=== PATIENT | female | born 1955 | race Caucasian/White ===

== ENCOUNTER 2024-02-06 09:54 | Inpatient (IN) ==
--- NOTE | 2024-02-06 10:33 | Emergency Department Note ---
History of Present Illness General Chief complaint: Bleeding Stated complaint: DIFF BREATHING, ABNORMAL LABS, BLEEDING Time Seen by Provider: 02/06/24 10:21 History of Present Illness This is a 68-year-old female with a history of diabetes, pancreatitis, stage IV kidney disease, recent anemia, as well as history of open heart surgery previously on Plavix with complaints of "difficulty breathing, abnormal labs, bleeding". The patient notes that this past October she sustained a fall, when she broke facial bones and had epistaxis. She was on Plavix at that time but that was discontinued. The only anticoagulant/antiplatelet is now low-dose aspirin that she takes daily, last dose yesterday. The patient notes that as of recent she has had exertional dyspnea, pale appearance to her skin, blue lips at times. She is concerned that she is losing blood but unsure where. She notes that her last hemoglobin check was January 28 and was 8.1. Additionally she notes that fecal occult blood test was performed then as well and was negative. She denies any vomiting. No fevers, chills or nausea. There is no chest pain. She notes that she cannot lay flat as she is quite dyspneic. She notes that she has to sit up to sleep. She is here today accompanied by her son as well as [id number]. Patient does have laboratory studies on her phone. These indicate that her hemoglobin was normally around 14 last of which was November 2022 and then in November of this year, 2023, it dropped into the 8 range. Home Medications Medication Instructions Recorded Confirmed Type Iron with C 1 tab PO DAILY 02/06/24 02/06/24 History Vitamin D3 1 tab PO DAILY 02/06/24 02/06/24 History furosemide 20 mg tablet 20 mg PO DAILY 02/06/24 02/06/24 History magnesium 1 tab PO DAILY 02/06/24 02/06/24 History metformin 1,000 mg tablet 1,000 mg PO BID 02/06/24 02/06/24 History nebivolol 10 mg tablet (Bystolic) 5 mg PO DAILY 02/06/24 02/06/24 History pantoprazole 40 mg tablet,delayed 40 mg PO BID 02/06/24 02/06/24 History release potassium 1 tab PO DAILY 02/06/24 02/06/24 History pramipexole 1.5 mg tablet,extended 1.5 mg PO DAILY 02/06/24 02/06/24 History release 24 hr ranolazine 500 mg tablet,extended 500 mg PO BID 02/06/24 02/06/24 History release,12 hr rosuvastatin 20 mg tablet 20 mg PO DAILY 02/06/24 02/06/24 History triamterene 37.5 1 cap PO DAILY 02/06/24 02/06/24 History mg-hydrochlorothiazide 25 mg capsule venlafaxine 150 mg 150 mg PO BID 02/06/24 02/06/24 History capsule,extended release 24 hr Allergies Allergy/AdvReac Type Severity Reaction Status Date / Time cefazolin [From Ancef] Allergy Verified 02/06/24 10:38 erythromycin base Allergy Verified 02/06/24 10:38 [From Erythrocin] Past Med/Surg History Problem List (Updated 02/06/24 @ 17:16 by Orlin Ordoñez PA-C) Orthopnea (Acute) CAD (coronary artery disease) Anxiety and depression GERD (gastroesophageal reflux disease) Anemia (Acute) Restless leg syndrome Diabetes mellitus Hyperlipidemia Hypertension S/P CABG x 2 CHF exacerbation (Acute) Social History Smoking Status: Former smoker Second Hand Exposure: No; Do You Dip or Chew Tobacco: No; Tobacco Cessation Education Requested by Patient: No Hx Alcohol Use: No Hx Substance Use: No Preferred Language: Swedish Communication Ability: Effective Suede Cleaner Required: No Current Living Situation: Alone Other Information That Helps Us Care for You: No Feels Safe at Home: Yes Safety Concerns: Feels Safe At This Time Assistive Devices: None Review of Systems A total of 10 systems reviewed and were otherwise negative Physical Exam Vital Signs Vital Signs - 24 hr 02/06/24 10:01 02/06/24 10:24 02/06/24 12:44 Temperature 36.6 C Temperature Source Temporal Artery Scan Pulse Rate 66 61 Respiratory Rate 18 Blood Pressure 129/75 Blood Pressure Mean 93 Pulse Oximetry 94 95 Oxygen Delivery Method Room Air Room Air Oxygen Flow Rate 0 Sepsis Recent Fever Within 48 Hours No Sepsis New/Unexplained Change in Mental Status N/A Sepsis Action Taken by Nursing No Action Required VITAL SIGNS - Vital signs and nursing notes were reviewed. Stable and afebrile. GENERAL -68-year-old female appearing her stated age who is in no acute distress but pale in appearance. Communicates well with provider and answers questions appropriately. SKIN -mildly pale in appearance. Without rashes. Stable and afebrile. HEAD - NC/AT. EYES - PERRL with EOMI bilaterally. Sclera anicteric. Palpebral conjunctiva pink and moist with no injection noted. EARS - No deformities of external structures noted on gross examination bilaterally. NOSE - Midline and without cyanosis. No epistaxis or purulent drainage noted. Septum midline without deviation or septal hematoma noted. MOUTH/OROPHARYNX - Without perioral cyanosis however minimal pink hue noted to the lips, with a slight purpleish hue. No tonsillar hypertrophy. Tongue midline. NECK - Neck with FROM. Supple to palpation. No nuchal rigidity. LUNGS - Chest wall symmetric without accessory muscle use, intercostals retractions, or central cyanosis. Normal vesicular breath sounds CTA B/L. No wheezes, rales, or rhonchi appreciated. CARDIAC - RRR with S1/S2. No murmur, rubs, or gallops appreciated. ABDOMEN - Abdominal contour normal without pulsations or visible masses. BS normoactive all four quadrants. No tenderness, palpable masses, hepatosplenomegaly, or ascites noted. EXTREMITIES - No clubbing or peripheral cyanosis. No pretibial edema present.+5/5 strength noted in UE/LE bilaterally. NEUROLOGIC - Cranial nerves II through XII grossly intact. PSYCH -alert, oriented and pleasant on exam. RECTAL examverbal consent was obtained. Female RN Carolina present at bedside. Examination performed at noon on 02/06/2024. No bleeding hemorrhoids. Fecal occult blood test negative Course Administered Medications Discontinued Medications Furosemide (Furosemide 40 Mg/4 Ml Vial) 40 mg IV ONE ONE Stop: 02/06/24 13:54 Last Admin: 02/06/24 14:07 Dose: 40 mg Documented By: TONO Medical Decision Making Laboratory Data 02/06/24 10:19 02/06/24 10:19 Lab Results 02/06/24 02/06/24 02/06/24 Range/Units 10:19 10:53 12:56 WBC 9.68 (4.8-10.8) K/ul RBC 3.83 L (4.20-5.40) M/uL Hgb 8.5 L (12.0-16.0) g/dl Hct 30.0 L (37.0-47.0) % MCV 78.3 L (80.0-100.0) fL MCH 22.2 L (25.0-34.0) pg MCHC 28.3 L (32.0-36.0) g/dL RDW Std Deviation 50.2 H (36.4-46.3) fL RDW Coeff of Olu 18.7 H (11.5-14.5) % Plt Count 303 (130-400) K/uL MPV 11.1 (9.4-12.4) fL Immature Gran % (Auto) 1.2 % Neut % (Auto) 65.3 % Lymph % (Auto) 17.8 % [place] % (Auto) 11.8 % Eos % (Auto) 3.2 % Baso % (Auto) 0.7 % Reticulocyte % (Auto) 3.15 H (0.50-2.00) % Neut # (Auto) 6.32 (1.40-6.50) K/uL Lymph # (Auto) 1.72 (1.20-3.40) K/uL [place] # (Auto) 1.14 H (0.11-0.59) K/uL Eos # (Auto) 0.31 (0.00-0.50) K/uL Baso # (Auto) 0.07 (0.00-0.20) K/uL Reticulocyte # 0.120 H (0.020-0.100) 10^6/uL Immature Gran # (Auto) 0.12 (0.01-0.20) K/uL Absolute Nucleated RBC 0.02 (0.00-0.12) K/uL Nucleated RBC % (auto) 0.2 % Polychromasia 1+ PT 11.7 (9.0-12.0) Seconds INR 1.1 (0.9-1.1) APTT 32 H (21-31) Seconds PTT Ratio 1.2 Sodium 136 (136-145) mmol/L Potassium 4.3 (3.5-5.1) mmol/L Chloride 100 (98-107) mmol/L Carbon Dioxide 30 (21-32) mmol/L Anion Gap 6 (3-11) BUN 19 (6-23) mg/dl Creatinine 1.20 (0.6-1.2) mg/dl Est Cr Clr Drug Dosing 45.8 ml/min Est GFR ( Amer) 53.4 ml/min Est GFR (Non-Af Amer) 46.1 ml/min BUN/Creatinine Ratio 15.8 (10-20) Glucose 178 H (70-99(Fasting)) mg/dl Calcium 9.6 (8.6-10.3) mg/dl Magnesium 2.0 (1.7-2.4) mg/dl Iron 51 (35-150) mcg/dl TIBC 382 (250-450) mcg/dl Unsaturated IBC 331 (155-355) mcg/dl Transferrin % Sat 13 L (15-50) % Total Bilirubin 0.5 (0.2-1.0) mg/dl AST 15 (13-39) U/L ALT 15 (7-52) U/L Alkaline Phosphatase 107 H (34-104) U/L Troponin I High Sens 7.2 (0-14) pg/ml B-Natriuretic Peptide 493 H (0-100) pg/ml Total Protein 6.6 (6.0-8.3) gm/dl Albumin 4.3 (3.4-5.0) gm/dl Globulin 2.3 L (2.5-4.0) gm/dl Albumin/Globulin Ratio 1.9 (0.9-2) Vitamin B12 351 (180-914) pg/ml Folate 12.48 (>5.38) ng/ml TSH 2.961 (0.300-4.500) uIu/ml Blood Type O Positive Antibody Screen NEGATIVE Imaging Data Radiologist's Impression: Chest X-Ray 02/06/24 10:33 XR chest 1V portable HISTORY: dyspnea, anemia COMPARISON: None. FINDINGS: No pneumothorax. No pleural effusions. The cardiac silhouette is mildly enlarged. There are poststernotomy changes. No focal lung consolidations to suggest a pneumonia. Mild interstitial/vascular thickening likely representing mild pulmonary edema. IMPRESSION: Cardiomegaly with mild pulmonary edema. ACT 112: Negative or not required by law. Electronically signed by: Sanket Joshi M.D. 02/06/2024 11:53 AM MDM Narrative Patient was seen and evaluated as above in room C9. Review was performed of triage nursing notes and vital signs. No previous visits for review at time of evaluation however the patient does have some of her laboratory studies on her phone for review. She is here today for evaluation of exertional dyspnea, orthopnea, in the setting of recently identified anemia. After obtaining a thorough history and physical examination the above work up was performed. Patient is clinically well-appearing, pale in appearance overall. Options of care were discussed with the patient. IV access was established. Labs were drawn. There is no leukocytosis. Anemia noted with hemoglobin of 8.5. Type and screen ordered. INR normal. Creatinine 1.2 with a BUN of 19. Glucose 178. Troponin normal. TSH reveals euthyroid state. Patient is O+. CTA of the chest was considered however the patient does have underlying CKD and there are other differentials at this time which are felt to be more likely than PE. Additional studies were ordered to include BNP 493. Chest x-ray also notes cardiomegaly with mild pulmonary edema per my interpretation as well as the radiologist. At this time we will proceed with inpatient management. Case discussed with the hospitalist service. Please refer to further documentation regarding her stay. Case was discussed with the attending physician. EKG reveals normal sinus rhythm at a rate of 66 bpm. QTc 454. QRS 80. No ST elevation. No previous for comparison. GCS: 15 In the evaluation and treatment of this patient the following differential diagnoses were entertained: VA, PE, pneumonia, pleural effusion, CHF, symptomatic anemia, among others Impression & Plan CHF exacerbation, Anemia, Orthopnea Discharge Plan Visit Data Chief Complaint: Bleeding Stated Complaint: DIFF BREATHING, ABNORMAL LABS, BLEEDING ED Provider: [facility] ED Midlevel Provider: Orlin Ordoñez Discharge Problem: CHF exacerbation, Anemia, Orthopnea Patient Disposition: Admitted As Inpatient Condition: Good Discharge Instructions Interventions: ED Discharge Assessment Last Done: 02/06/24 15:34
[2024-02-06 10:45] LABS: Basophils # (auto) 0.07 K/uL (0.00-0.20); Basophils % (auto) 0.7 %; Eosinophils # (auto) 0.31 K/uL (0.00-0.50); Eosinophils % (auto) 3.2 %; Hemoglobin 8.5 g/dl (12.0-16.0); Immature Granulocytes # (auto) 0.12 K/uL (0.01-0.20); Immature Granulocytes % (auto) 1.2 %; Lymphocytes # (auto) 1.72 K/uL (1.20-3.40); Lymphocytes % (auto) 17.8 %; Mean Corpuscular Hemoglobin 22.2 pg (25.0-34.0); Mean Corpuscular Hgb Conc 28.3 g/dL (32.0-36.0); Mean Corpuscular Volume 78.3 fL (80.0-100.0); Mean Platelet Volume 11.1 fL (9.4-12.4); Monocytes # (auto) 1.14 K/uL (0.11-0.59); Monocytes % (auto) 11.8 %; Neutrophils # (auto) 6.32 K/uL (1.40-6.50); Neutrophils % (auto) 65.3 %; Nucleated RBC # (auto) 0.02 K/uL (0.00-0.12); Nucleated RBC % (auto) 0.2 %; Platelet Count 303 K/uL (130-400); RDW Coefficient of Variation 18.7 % (11.5-14.5); RDW Standard Deviation 50.2 fL (36.4-46.3); Red Blood Count 3.83 M/uL (4.20-5.40); White Blood Count 9.68 K/ul (4.8-10.8)
[2024-02-06 10:52] LABS: Albumin Globulin Ratio 1.9 (0.9-2); Albumin Level 4.3 gm/dl (3.4-5.0); BUN Creatinine Ratio 15.8 (10-20); Bilirubin,Total 0.5 mg/dl (0.2-1.0); Calcium 9.6 mg/dl (8.6-10.3); Creatinine Clr Calc Pharmacy 45.8 ml/min; Est GFR (African American) 53.4 ml/min; Est GFR (Non-African American) 46.1 ml/min; Globulin 2.3 gm/dl (2.5-4.0); Potassium 4.3 mmol/L (3.5-5.1); Total Protein 6.6 gm/dl (6.0-8.3)
[2024-02-06 10:59] LABS: Troponin I High Sensitivity 7.2 pg/ml (0-14)
[2024-02-06 11:08] LABS: Thyroid Stimulating Hormone 2.961 uIu/ml (0.300-4.500)
[2024-02-06 11:12] LABS: INR 1.1 (0.9-1.1); Partial Thromboplastin Ratio 1.2; Partial Thromboplastin Time 32 Seconds (21-31); Prothrombin Time 11.7 Seconds (9.0-12.0)
--- NOTE | 2024-02-06 11:42 | Emergency Department Note ---
ED Visit Note ED Physician Supervisory Note & Attestation: I was consulted by the Advanced Practice Provider, Orlin Ordoñez PA-C. I personally made/approved the management plan and take responsibility for the patient management. I performed a substantive portion of the visit. This includes the aspects of: MDM: Acute/new onset anemia associated with shortness of breath and symptomatic. Patient with cardiac disease we will hold off on transfusion at this point but given unclear etiology and symptomatic we will consult for further evaluation on the hospital side. Tre Ness MD
--- NOTE | 2024-02-06 11:54 | XRay Report ---
XR chest 1V portable HISTORY: dyspnea, anemia COMPARISON: None. FINDINGS: No pneumothorax. No pleural effusions. The cardiac silhouette is mildly enlarged. There are poststernotomy changes. No focal lung consolidations to suggest a pneumonia. Mild interstitial/vascu lar thickening likely representing mild pulmonary edema. IMPRESSION: Cardiomegaly with mild pulmonary edema. ACT 112: Negative or not required by law. Electronically signed by: Sanket Joshi M.D. 02/06/2024 11:53 AM
--- NOTE | 2024-02-06 12:12 | Electrocardiogram Report ---
Test Reason : Blood Pressure : / mmHG Vent. Rate : 066 BPM Atrial Rate : 066 BPM P-R Int : 146 ms QRS Dur : 080 ms QT Int : 434 ms P-R-T Axes : 058 043 006 degrees QTc Int : 454 ms Normal sinus rhythm Cannot rule out Inferior infarct , age undetermined Possible Anterior infarct , age undetermined Abnormal ECG No previous ECGs available Confirmed by Ankit Daniel ([id number]) on 02/06/2024 12:12:03 PM Referred By: REFERRED SELF Confirmed By:Diogo Daniel
[2024-02-06] MEDS: FUROSEMIDE 40 MG/4 ML VIAL IV ONE (14:07)
[2024-02-06 14:14] LABS: Reticulocyte % 3.15 % (0.50-2.00)
--- NOTE | 2024-02-06 14:26 | History & Physical Report ---
Date of Service February 06, 2024 Assessment & Plan (1) CHF exacerbation: (2) S/P CABG x 2: (3) Hypertension: (4) Hyperlipidemia: (5) Diabetes mellitus: (6) Restless leg syndrome: (7) Anemia: (8) GERD (gastroesophageal reflux disease): (9) Anxiety and depression: (10) CAD (coronary artery disease): Plan CHF exacerbation/CAD/hypertension/status post CABG x 2- The patient will be admitted to telemetry for serial cardiac enzymes, serial EKG's, cardiac rhythm monitoring and a 2-D echocardiogram with Dopplers. Chest x-ray with significant CHF initial troponin 7.2, BNP 493 Give furosemide 40 mg IV now and QAM Continue ranolazine and nebivolol Hold triamterene/HCTZ and lisinopril Consult cardiology Try to obtain all records from [facility] and hospital that she was at in [place] Anemia- Unclear etiology at this time Per history, began after a nasal fracture in October while in [place], will attempt to get those records Hemoglobin 8.5 on admission Hemoccult stool negative in the ED, continue to check Check iron panel, B12, folate, reticulocyte count and peripheral smear No suggestion of trauma to be concerned regarding retroperitoneal bleed hold antiplatelet agents and anticoagulants Other than ranolazine Diabetes mellitus- Hold metformin Placed on Accu-Cheks with NovoLog SSI Check hemoglobin A1c GERD- Continue pantoprazole 40 mg p.o. twice daily Hyperlipidemia- Continue rosuvastatin Check a fasting lipid panel History of Present Illness Chief Complaint: Patient presents to the emergency department with worsening shortness of breath, dyspnea on exertion, and inability to lay flat over the past several days. Primary Care Provider: Carlito Boyer DO The patient is a 68-year-old female with a past medical history including CAD, CABG x 2 in 2018, hypertension, diabetes mellitus, GERD, restless leg syndrome, hyperlipidemia and anxiety with depression. She presents to the emergency department with worsening shortness of breath over the past several days. She usually gets her care at [facility], however, patient has presented with her family to [place] for additional assessment. Patient has known history of anemia, which initially occurred 11/01/2023, while she was in [place], when she accidentally stepped into a hole, fell forward and fractured her nasal bones, required packing for a week, and was found to have a hemoglobin of 8.1 at that time. She denies any obvious issues with blood loss in stool or urine. She reports that she was on Maxide in the outpatient setting, which had been changed to furosemide last week, but she felt that she was retaining more fluid in her legs, and she went back to her Maxide dosing 3 days ago. Her family reports that she has been sleeping up to 18 hours a day over the past 2 weeks, due to severe fatigue she denies any blood in urine or stool.She reports that her Plavix was stopped last week when her hemoglobin was found to be low at her most recent labs Allergies Allergy/AdvReac Type Severity Reaction Status Date / Time cefazolin [From Ancef] Allergy Verified 02/06/24 10:38 erythromycin base Allergy Verified 02/06/24 10:38 [From Erythrocin] Home Medications Medication Instructions Recorded Confirmed Type Iron with C 1 tab PO DAILY 02/06/24 02/06/24 History Vitamin D3 1 tab PO DAILY 02/06/24 02/06/24 History furosemide 20 mg tablet 20 mg PO DAILY 02/06/24 02/06/24 History magnesium 1 tab PO DAILY 02/06/24 02/06/24 History metformin 1,000 mg tablet 1,000 mg PO BID 02/06/24 02/06/24 History nebivolol 10 mg tablet (Bystolic) 5 mg PO DAILY 02/06/24 02/06/24 History pantoprazole 40 mg tablet,delayed 40 mg PO BID 02/06/24 02/06/24 History release potassium 1 tab PO DAILY 02/06/24 02/06/24 History pramipexole 1.5 mg tablet,extended 1.5 mg PO DAILY 02/06/24 02/06/24 History release 24 hr ranolazine 500 mg tablet,extended 500 mg PO BID 02/06/24 02/06/24 History release,12 hr rosuvastatin 20 mg tablet 20 mg PO DAILY 02/06/24 02/06/24 History triamterene 37.5 1 cap PO DAILY 02/06/24 02/06/24 History mg-hydrochlorothiazide 25 mg capsule venlafaxine 150 mg 150 mg PO BID 02/06/24 02/06/24 History capsule,extended release 24 hr Past Med/Surg History Problem List (Updated 02/06/24 @ 14:24 by Alex Snow MD) CAD (coronary artery disease) Anxiety and depression GERD (gastroesophageal reflux disease) Anemia Restless leg syndrome Diabetes mellitus Hyperlipidemia Hypertension S/P CABG x 2 CHF exacerbation Social History Smoking Status: Former smoker Second Hand Exposure: No; Do You Dip or Chew Tobacco: No; Tobacco Cessation Education Requested by Patient: No Hx Alcohol Use: No Hx Substance Use: No Preferred Language: Armenian Communication Ability: Effective 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: No Current Living Situation: Alone Other Information That Helps Us Care for You: No Feels Safe at Home: Yes Safety Concerns: Feels Safe At This Time Assistive Devices: None Review of Systems Review of Systems: The patient denies chest pain, palpitations, cough, sore throat, fevers, chills, sweats, nausea, vomiting, diarrhea , constipation, abdominal pain, pelvic pain, blood in urine or stool, dysuria, urinary frequency or urgency, lightheadedness, dizziness, headache, memory loss, loss of consciousness, rash, abnormal bruising or bleeding, imbalance, focal or generalized weakness, numbness or tingling in arms or legs, generalized arthralgias or myalgias, back or neck pain, or night sweats. The review of systems is otherwise negative other than for that already noted above, and at least 10 systems have been reviewed. Physical Exam Physical Exam: The patient is awake, alert and oriented 3, well developed and well nourished, normocephalic and atraumatic, lying in bed and in no acute distress. HEENT--PERRL, EOMI, mucous membranes and oropharynx normal Neck--supple. No JVD. No bruits. Thyroid normal, trachea midline, no adenopathy. Heart--normal S1 and S2. No murmurs, rubs or gallops. Lungs--crackles throughout. No respiratory distress, no accessory muscle use. Abdomen--normal bowel sounds and soft. Nontender. Nondistended, no hernias or masses, no organomegaly. Extremities--1+ bilateral pretibial pitting edema Dermatologic--normal skin turgor, normal color, no abnormal lymph nodes, no rash. Neurologic--cranial nerves II through XII grossly intact. Rheumatologic--normal range of motion. Psychiatric--normal affect. Results & Data Results & Data Vital Signs (Past 12 Hours) Vital Signs Temp Pulse Resp BP Pulse Ox O2 Del Method O2 Flow Rate 02/06/24 12:44 61 02/06/24 10:24 95 Room Air 0 02/06/24 10:01 36.6 C 66 18 129/75 94 Room Air Laboratory Results Laboratory Results WBC 9.68 K/ul (4.8-10.8) 02/06/24 10:19 RBC 3.83 M/uL (4.20-5.40) L 02/06/24 10:19 Hgb 8.5 g/dl (12.0-16.0) L 02/06/24 10:19 Hct 30.0 % (37.0-47.0) L 02/06/24 10:19 MCV 78.3 fL (80.0-100.0) L 02/06/24 10:19 MCH 22.2 pg (25.0-34.0) L 02/06/24 10:19 MCHC 28.3 g/dL (32.0-36.0) L 02/06/24 10:19 RDW Std Deviation 50.2 fL (36.4-46.3) H 02/06/24 10:19 RDW Coeff of Olu 18.7 % (11.5-14.5) H 02/06/24 10:19 Plt Count 303 K/uL (130-400) 02/06/24 10:19 MPV 11.1 fL (9.4-12.4) 02/06/24 10:19 Immature Gran % (Auto) 1.2 % 02/06/24 10:19 Neut % (Auto) 65.3 % 02/06/24 10:19 Lymph % (Auto) 17.8 % 02/06/24 10:19 [place] % (Auto) 11.8 % 02/06/24 10:19 Eos % (Auto) 3.2 % 02/06/24 10:19 Baso % (Auto) 0.7 % 02/06/24 10:19 Reticulocyte % (Auto) 3.15 % (0.50-2.00) H 02/06/24 10:19 Neut # (Auto) 6.32 K/uL (1.40-6.50) 02/06/24 10:19 Lymph # (Auto) 1.72 K/uL (1.20-3.40) 02/06/24 10:19 [place] # (Auto) 1.14 K/uL (0.11-0.59) H 02/06/24 10:19 Eos # (Auto) 0.31 K/uL (0.00-0.50) 02/06/24 10:19 Baso # (Auto) 0.07 K/uL (0.00-0.20) 02/06/24 10:19 Reticulocyte # 0.120 10^6/uL (0.020-0.100) H 02/06/24 10:19 Immature Gran # (Auto) 0.12 K/uL (0.01-0.20) 02/06/24 10:19 Absolute Nucleated RBC 0.02 K/uL (0.00-0.12) 02/06/24 10:19 Nucleated RBC % (auto) 0.2 % 02/06/24 10:19 PT 11.7 Seconds (9.0-12.0) 02/06/24 10:19 INR 1.1 (0.9-1.1) 02/06/24 10:19 APTT 32 Seconds (21-31) H 02/06/24 10:19 PTT Ratio 1.2 02/06/24 10:19 Sodium 136 mmol/L (136-145) 02/06/24 10:19 Potassium 4.3 mmol/L (3.5-5.1) 02/06/24 10:19 Chloride 100 mmol/L (98-107) 02/06/24 10:19 Carbon Dioxide 30 mmol/L (21-32) 02/06/24 10:19 Anion Gap 6 (3-11) 02/06/24 10:19 BUN 19 mg/dl (6-23) 02/06/24 10:19 Creatinine 1.20 mg/dl (0.6-1.2) 02/06/24 10:19 Est Cr Clr Drug Dosing 45.8 ml/min 02/06/24 10:19 Est GFR ( Amer) 53.4 ml/min 02/06/24 10:19 Est GFR (Non-Af Amer) 46.1 ml/min 02/06/24 10:19 BUN/Creatinine Ratio 15.8 (10-20) 02/06/24 10:19 Glucose 178 mg/dl (70-99(Fasting)) H 02/06/24 10:19 Calcium 9.6 mg/dl (8.6-10.3) 02/06/24 10:19 Magnesium 2.0 mg/dl (1.7-2.4) 02/06/24 10:19 Total Bilirubin 0.5 mg/dl (0.2-1.0) 02/06/24 10:19 AST 15 U/L (13-39) 02/06/24 10:19 ALT 15 U/L (7-52) 02/06/24 10:19 Alkaline Phosphatase 107 U/L (34-104) H 02/06/24 10:19 Troponin I High Sens 7.2 pg/ml (0-14) 02/06/24 10:19 B-Natriuretic Peptide 493 pg/ml (0-100) H 02/06/24 12:56 Total Protein 6.6 gm/dl (6.0-8.3) 02/06/24 10:19 Albumin 4.3 gm/dl (3.4-5.0) 02/06/24 10:19 Globulin 2.3 gm/dl (2.5-4.0) L 02/06/24 10:19 Albumin/Globulin Ratio 1.9 (0.9-2) 02/06/24 10:19 TSH 2.961 uIu/ml (0.300-4.500) 02/06/24 10:19 Blood Type O Positive 02/06/24 10:53 Antibody Screen NEGATIVE 02/06/24 10:53 Impressions Chest X-Ray 02/06/24 10:33 XR chest 1V portable HISTORY: dyspnea, anemia COMPARISON: None. FINDINGS: No pneumothorax. No pleural effusions. The cardiac silhouette is mildly enlarged. There are poststernotomy changes. No focal lung consolidations to suggest a pneumonia. Mild interstitial/vascular thickening likely representing mild pulmonary edema. IMPRESSION: Cardiomegaly with mild pulmonary edema. ACT 112: Negative or not required by law. Electronically signed by: Sanket Joshi M.D. 02/06/2024 11:53 AM Code Status & VTE Plan Code Status Full code VTE Prophylaxis Plan VTE Prophylaxis will be ordered: Yes PG Care Time/CCT Total # of Minutes Spent Total Time Spent with Patient: Total time spent is greater than 50% in coordination of care (as documented) at patient's floor/unit and/or counseling patient: Coding Level of Care Code 47357 INT INP/OBS CARE MIN Diagnoses CHF exacerbation I50.9 S/P CABG x 2 Z95.1 Hypertension I10 Hyperlipidemia E78.5 Diabetes mellitus E11.9 Restless leg syndrome G25.81 Anemia D64.9 GERD (gastroesophageal reflux disease) K21.9 Anxiety and depression F41.9; F32.A CAD (coronary artery disease) I25.10
[2024-02-06 14:42] LABS: Polychromasia 1+
[2024-02-06 14:59] LABS: Folate (Folic Acid),Ser orPlas 12.48 ng/ml (>5.38)
[2024-02-06] MEDS ORDERED: GLUCOSE 40% GEL 15 GM TUBE PO PRN (16:30)
[2024-02-06] MEDS ORDERED: CARBOHYDRATES FOR HYPOGLYCEMIA PO PRN (16:30)
[2024-02-06] MEDS ORDERED: GLUCAGON FOR INJ 1 MG VIAL SQ PRN (16:30)
[2024-02-06] MEDS ORDERED: DEXTROSE 50% 50 ML SYRINGE IV PRN (16:30)
[2024-02-06] MEDS ORDERED: GLUCOSE 10 TAB/TUBE PO PRN (16:30)
[2024-02-06] MEDS ORDERED: ONDANSETRON INJ 2 MG/ML 2 ML VIAL IV PRN (16:30)
[2024-02-06] MEDS: INSULIN ASPART PER UNIT CHARGE SC SCH (17:28)
--- NOTE | 2024-02-06 18:47 | XCELERA ---
[id number] \\[id number]
[2024-02-06] MEDS: VENLAFAXINE HCL XR 150 MG CAPXR PO SCH (20:42)
[2024-02-06] MEDS: PANTOprazole 40 MG TAB PO SCH (20:42)
[2024-02-06] MEDS: RANOLAZINE 500 MG ER TAB PO SCH (20:42)
[2024-02-06] MEDS: ACETAMINOPHEN 325 MG TAB PO PRN (20:49)
[2024-02-07 00:22] LABS: Appearance Urine Cloudy (Clear); Bacteria Urine Automated None Seen (None Seen); Bilirubin Urine Negative (Negative); Blood Urine Negative (Negative); Cast Urine Automated 0-2 /lpf (0-2); Color Urine Yellow; Epithelial Cell Urine Auto 0-2 /hpf (0-2); Glucose Urine UA Negative (Negative); Ketones Urine Trace (Negative); Leukocyte Esterase Urine Trace (Negative); Nitrite Urine Negative (Negative); Protein Urine Trace (Negative); RBC Urine Automated 0-2 /hpf (0-2); Specific Gravity Urine 1.016 (1.000-1.030); Urobilinogen Urine Negative (Negative); WBC Urine Automated 0-5 /hpf (0-5); pH Urine 7.5 (4.5-7.5)
[2024-02-07 08:57] LABS: Basophils # (auto) 0.04 K/uL (0.00-0.20); Basophils % (auto) 0.5 %; Eosinophils # (auto) 0.28 K/uL (0.00-0.50); Eosinophils % (auto) 3.2 %; Hematocrit (blood only) 29.9 % (37.0-47.0); Hemoglobin 8.7 g/dl (12.0-16.0); Immature Granulocytes # (auto) 0.06 K/uL (0.01-0.20); Immature Granulocytes % (auto) 0.7 %; Lymphocytes % (auto) 14.6 %; Mean Corpuscular Hemoglobin 22.4 pg (25.0-34.0); Mean Corpuscular Hgb Conc 29.1 g/dL (32.0-36.0); Mean Corpuscular Volume 76.9 fL (80.0-100.0); Mean Platelet Volume 10.9 fL (9.4-12.4); Monocytes % (auto) 11.3 %; Neutrophils % (auto) 69.7 %; Platelet Count 291 K/uL (130-400); RDW Coefficient of Variation 18.9 % (11.5-14.5); RDW Standard Deviation 48.8 fL (36.4-46.3); Red Blood Count 3.89 M/uL (4.20-5.40); White Blood Count 8.88 K/ul (4.8-10.8)
[2024-02-07] MEDS: ROSUVASTATIN CALCIUM 20 MG TAB PO SCH (09:00)
[2024-02-07] MEDS: FUROSEMIDE 40 MG/4 ML VIAL IV SCH (09:11)
[2024-02-07 09:36] LABS: Albumin Level 4.1 gm/dl (3.4-5.0); Bilirubin,Total 0.6 mg/dl (0.2-1.0); Calcium 9.2 mg/dl (8.6-10.3); Potassium 3.8 mmol/L (3.5-5.1)
[2024-02-07 09:42] LABS: Albumin Globulin Ratio 1.6 (0.9-2); BUN Creatinine Ratio 16.7 (10-20); Chol HDL Ratio 2.8 (0-5); Creatinine Clr Calc Pharmacy 47.1 ml/min; Est GFR (African American) 50.3 ml/min; Est GFR (Non-African American) 43.4 ml/min; Globulin 2.5 gm/dl (2.5-4.0); Total Protein 6.6 gm/dl (6.0-8.3)
[2024-02-07 10:19] LABS: Estimated Average Glucose 166 mg/dl; Hemoglobin A1C 7.4 % (4.5-5.6)
--- NOTE | 2024-02-07 16:47 | Cardiology Consultation ---
Date of Consultation February 07, 2024 Assessment & Plan (1) CHF exacerbation: (2) CAD (coronary artery disease): (3) Mitral regurgitation: Plan 1. Shortness of breath: She may have element of mild pulmonary vascular congestion. This is in the setting of preserved LV systolic function. Her examination today demonstrated only some mild evidence of congestion. I am not convinced that all of her symptoms are related to heart failure with preserved ejection fraction. Certainly her persistent anemia is concerning. At this point would seem reasonable to continue IV diuresis. Her outpatient diuretic regimen could be changed to 40 mg of Lasix daily at the time of discharge. Consideration could be given to the addition of an SG LT 2 inhibitor in the outpatient setting. 2. Coronary disease: History of surgical revascularization. No current symptoms suggestive of coronary insufficiency or angina. She will continue aggressive secondary prevention with high-dose rosuvastatin. 3. Mitral regurgitation: Mild to moderate. No current symptoms. This can be followed over time. History of Present Illness Reason for Consultation: Shortness of breath Requesting Physician: Gwendolyn Attending Physician: Do Vang DO History of Present Illness The patient is a 68-year-old woman with a history of coronary artery disease having previously undergone surgical revascularization in 2018. She is also known to have an element of valvular heart disease. She presented to our emergency room with symptoms of dyspnea on exertion. It seems that the symptoms have been present for several weeks if not months. She was hospitalized in [facility] in October this year after suffering trauma to her face. This resulted in significant epistaxis. At the time of that admission she was noted to be anemic. She noticed the dyspnea on exertion subsequent to that admission. She has been to the emergency room elsewhere on 2 occasions since that time for dyspnea. On 1 occasion she was told she had congestive heart failure. Based on the persistent nature of her symptoms she presented to our facility. At rest she has no shortness of breath. She did report some symptoms of orthopnea recently. She believes she has gained 20 lb and has noticed some lower extremity edema. This edema appears to be better in the morning and then recurs at the end of the day. She did not report symptoms of exertional chest pain. She occasionally has some very fleeting chest pains. Also some fairly fleeting palpitations. Minimal dizziness or lightheadedness. No presyncope. No history of syncope. Allergies Allergy/AdvReac Type Severity Reaction Status Date / Time cefazolin [From Ancef] Allergy Verified 02/06/24 10:38 erythromycin base Allergy Verified 02/06/24 10:38 [From Erythrocin] Home Medications Medication Instructions Recorded Confirmed Type Iron with C 1 tab PO DAILY 02/06/24 02/06/24 History Vitamin D3 1 tab PO DAILY 02/06/24 02/06/24 History furosemide 20 mg tablet 20 mg PO DAILY 02/06/24 02/06/24 History magnesium 1 tab PO DAILY 02/06/24 02/06/24 History metformin 1,000 mg tablet 1,000 mg PO BID 02/06/24 02/06/24 History nebivolol 10 mg tablet (Bystolic) 5 mg PO DAILY 02/06/24 02/06/24 History pantoprazole 40 mg tablet,delayed 40 mg PO BID 02/06/24 02/06/24 History release potassium 1 tab PO DAILY 02/06/24 02/06/24 History pramipexole 1.5 mg tablet,extended 1.5 mg PO DAILY 02/06/24 02/06/24 History release 24 hr ranolazine 500 mg tablet,extended 500 mg PO BID 02/06/24 02/06/24 History release,12 hr rosuvastatin 20 mg tablet 20 mg PO DAILY 02/06/24 02/06/24 History triamterene 37.5 1 cap PO DAILY 02/06/24 02/06/24 History mg-hydrochlorothiazide 25 mg capsule venlafaxine 150 mg 150 mg PO BID 02/06/24 02/06/24 History capsule,extended release 24 hr Patient History Social History Smoking Status: Former smoker Second Hand Exposure: No; Do You Dip or Chew Tobacco: No; Hx Alcohol Use: No Hx Substance Use: No Preferred Language: Slovak Communication Ability: Effective Manufacturing Operator Required: No Current Living Situation: Alone Feels Safe at Home: Yes Assistive Devices: Walker Review of Systems Review of Systems: Per HPI Physical Exam Physical Exam: She is alert and oriented x3. Mood affect appear normal. She answered all questions appropriately. HEENT: Sclerae are anicteric. Pupils are equal and reactive to light and accommodation. Extraocular movements were intact. Neuro: Cranial nerves intact Neck: Examination of the submandibular region did not reveal any significant lymphadenopathy. Carotids are palpable bilaterally and free of bruits on auscultation. There was no evidence of jugular venous distention. The thyroid was not enlarged. Lungs: Lungs are clear to auscultation bilaterally. There are no rales wheezes or rhonchi. She has normal respiratory effort without use of accessory muscles. There is normal pulmonary excursion. Cardiac: The rhythm was regular. S1 and S2 were normal. Holosystolic murmur The PMI was not markedly displaced on palpation. Extremities: Patient has bilateral radial pulses that are equal in intensity. There is no evidence cyanosis or clubbing. There was no evidence of significant peripheral edema bilaterally. Skin: There are no rashes noted on examination today. Results & Data Vital Signs (Past 12 Hours) Vital Signs Temp Pulse Pulse Resp BP Pulse Ox O2 Del Method 02/07/24 16:10 36.6 C 81 17 149/76 H 94 Room Air 02/07/24 15:57 90 02/07/24 11:15 36.6 C 78 18 134/70 98 Room Air 02/07/24 08:21 36.7 C 76 18 142/65 H 90 Nasal Cannula 02/07/24 07:45 Nasal Cannula 02/07/24 07:32 67 02/07/24 04:42 36.5 C 69 17 123/63 98 Nasal Cannula O2 Flow Rate 02/07/24 16:10 02/07/24 15:57 02/07/24 11:15 02/07/24 08:21 1 02/07/24 07:45 2 02/07/24 07:32 02/07/24 04:42 1 Laboratory Results Abnormal Lab Results 02/06/24 02/06/24 02/07/24 10:19 20:40 08:09 WBC RBC Hgb Hct MCV MCH MCHC RDW Std Deviation RDW Coeff of Olu Plt Count MPV Immature Gran % (Auto) Neut % (Auto) Lymph % (Auto) [place] % (Auto) Eos % (Auto) Baso % (Auto) Neut # (Auto) Lymph # (Auto) [place] # (Auto) Eos # (Auto) Baso # (Auto) Immature Gran # (Auto) Peripher Smr Path Cons Sodium Potassium Chloride Carbon Dioxide Anion Gap BUN Creatinine Est Cr Clr Drug Dosing Est GFR ( Amer) Est GFR (Non-Af Amer) BUN/Creatinine Ratio Glucose POC Glucose 188 H 197 H Estimat Average Glucose Hemoglobin A1c Calcium Magnesium Total Bilirubin AST ALT Alkaline Phosphatase Total Protein Albumin Globulin Albumin/Globulin Ratio Triglycerides Cholesterol LDL Cholesterol, Calc VLDL Cholesterol, Calc HDL Cholesterol Cholesterol/HDL Ratio Urine Color Urine Appearance Urine pH Ur Specific [employer] Urine Protein Urine Glucose (UA) Urine Ketones Urine Blood Urine Nitrite Urine Bilirubin Urine Urobilinogen Ur Leukocyte Esterase Urine WBC (Auto) Urine RBC (Auto) U Hyaline Cast (Auto) U Epithel Cells (Auto) Urine Bacteria (Auto) 02/07/24 02/07/24 02/07/24 08:41 11:17 16:13 WBC 8.88 RBC 3.89 L Hgb 8.7 L Hct 29.9 L MCV 76.9 L MCH 22.4 L MCHC 29.1 L RDW Std Deviation 48.8 H RDW Coeff of Olu 18.9 H Plt Count 291 MPV 10.9 Immature Gran % (Auto) 0.7 Neut % (Auto) 69.7 Lymph % (Auto) 14.6 [place] % (Auto) 11.3 Eos % (Auto) 3.2 Baso % (Auto) 0.5 Neut # (Auto) 6.20 Lymph # (Auto) 1.30 [place] # (Auto) 1.00 H Eos # (Auto) 0.28 Baso # (Auto) 0.04 Immature Gran # (Auto) 0.06 Peripher Smr Path Cons Sodium 140 Potassium 3.8 Chloride 101 Carbon Dioxide 32 Anion Gap 7 BUN 21 Creatinine 1.26 H Est Cr Clr Drug Dosing 47.1 Est GFR ( Amer) 50.3 Est GFR (Non-Af Amer) 43.4 BUN/Creatinine Ratio 16.7 Glucose 192 H POC Glucose 300 H 180 H Estimat Average Glucose 166 Hemoglobin A1c 7.4 H Calcium 9.2 Magnesium 2.0 Total Bilirubin 0.6 AST 15 ALT 13 Alkaline Phosphatase 97 Total Protein 6.6 Albumin 4.1 Globulin 2.5 Albumin/Globulin Ratio 1.6 Triglycerides 166 H Cholesterol 79 LDL Cholesterol, Calc 18 VLDL Cholesterol, Calc 33 H HDL Cholesterol 28 Cholesterol/HDL Ratio 2.8 Urine Color Urine Appearance Urine pH Ur Specific [employer] Urine Protein Urine Glucose (UA) Urine Ketones Urine Blood Urine Nitrite Urine Bilirubin Urine Urobilinogen Ur Leukocyte Esterase Urine WBC (Auto) Urine RBC (Auto) U Hyaline Cast (Auto) U Epithel Cells (Auto) Urine Bacteria (Auto) 08/05/24 Unknown WBC RBC Hgb Hct MCV MCH MCHC RDW Std Deviation RDW Coeff of Olu Plt Count MPV Immature Gran % (Auto) Neut % (Auto) Lymph % (Auto) [place] % (Auto) Eos % (Auto) Baso % (Auto) Neut # (Auto) Lymph # (Auto) [place] # (Auto) Eos # (Auto) Baso # (Auto) Immature Gran # (Auto) Peripher Smr Path Cons Sodium Potassium Chloride Carbon Dioxide Anion Gap BUN Creatinine Est Cr Clr Drug Dosing Est GFR ( Amer) Est GFR (Non-Af Amer) BUN/Creatinine Ratio Glucose POC Glucose Estimat Average Glucose Hemoglobin A1c Calcium Magnesium Total Bilirubin AST ALT Alkaline Phosphatase Total Protein Albumin Globulin Albumin/Globulin Ratio Triglycerides Cholesterol LDL Cholesterol, Calc VLDL Cholesterol, Calc HDL Cholesterol Cholesterol/HDL Ratio Urine Color Yellow Urine Appearance Cloudy A Urine pH 7.5 Ur Specific [employer] 1.016 Urine Protein Trace H Urine Glucose (UA) Negative Urine Ketones Trace H Urine Blood Negative Urine Nitrite Negative Urine Bilirubin Negative Urine Urobilinogen Negative Ur Leukocyte Esterase Trace H Urine WBC (Auto) 0-5 Urine RBC (Auto) 0-2 U Hyaline Cast (Auto) 0-2 U Epithel Cells (Auto) 0-2 Urine Bacteria (Auto) None Seen Diagnostic Findings Echocardiogram obtained 02/06/2024: Normal LV systolic function ejection fraction 55-60%. Mild to moderate mitral regurgitation. Chest x-ray obtained the time admission revealed mild cardiomegaly and pulmonary edema PG Care Time/CCT Total # of Minutes Spent Total Time Spent with Patient: Total time spent is greater than 50% in coordination of care (as documented) at patient's floor/unit and/or counseling patient: Coding Level of Care Code 38898 INT INP/OBS CARE 3/75MIN Diagnoses CHF exacerbation I50.9 CAD (coronary artery disease) I25.10 Mitral regurgitation I34.0
--- NOTE | 2024-02-07 17:33 | Hospitalist Progress Note ---
Date of Service February 07, 2024 Assessment & Plan (1) CHF exacerbation: (2) S/P CABG x 2: (3) Hypertension: (4) Hyperlipidemia: (5) Diabetes mellitus: (6) Restless leg syndrome: (7) Anemia: (8) GERD (gastroesophageal reflux disease): (9) Anxiety and depression: (10) CAD (coronary artery disease): Plan #CHF exacerbation/CAD/hypertension/status post CABG x 2- Trops peaked Echo with preserved ejection fraction Continue IV diuresis Chest x-ray with significant CHF initial troponin 7.2, BNP 493 Continue Lasix 40mg IV daily Continue ranolazine and nebivolol Hold triamterene/HCTZ and lisinopril Consult cardiology - recommend SGLT2, change diuretics to 40mg Lasix daily at discharged Try to obtain all records from [facility] and [facility] that she was at in [place] #Anemia- Unclear etiology at this time Per history, began after a nasal fracture in October while in [place], will attempt to get those records Hemoglobin 8.5 on admission Hemoccult stool negative in the ED, continue to check #Diabetes mellitus- Hold metformin Placed on Accu-Cheks with NovoLog SSI Check hemoglobin A1c #GERD- Continue pantoprazole 40 mg p.o. twice daily #Hyperlipidemia- Continue rosuvastatin Check a fasting lipid pane Admission and Anticipated Discharge Date Admission Date: February 06, 2024 Supervising Physician Co-Signing Physician Notes I personally examined the patient and verified ren points of history and exam, discussed case, and agree with decision making and plan documented by Dr. Chavez. Patient reports a week long worsening dyspnea and fatigue. She has had some weight gain. She states her PCP changed multiple medications prior to admission, she was on chronic triamterenehydrochlorothiazide for years which was then changed to Lasix 20 mg daily. Patient also states that her Plavix was discontinued following her fall where she had a nasal fracture. Since that time, her anemia has been present, she is not reporting any bleeding or signs of bleeding, check iron studies. Agree with cardiology recommendations, will continue diuresis, and likely increase p.o. Lasix to 40 mg daily on discharge. Blood glucose levels have been elevated, patient reports that her Actos and Jardiance were recently discontinued, A1c today is 7.4. Will restart SGLT2i tomorrow. Patient appears comfortable, lungs clear b/l to auscultation, regular rate and rhythm, trace edema at ankles, no acute distress. Continue monitoring I's and O's, weights, and vitals. Subjective Patient seen and evaluated at bedside this morning. No acute events overnight. No measured UOP in chart. Is feeling better today, reports good urine output. Review of Systems Review of Systems: reviewed, per HPI Physical Exam Physical Exam: Constitutional: NAD HEENT: NCAT, no conjunctival injection CV: regular rhythm, extremities well-perfused, no LE edema Resp: CTABL, no wheezes/rales/rhonchi appreciated, no increased work of breathing GI: nondistended MSK: no gross deformities appreciated Skin: warm, dry, no rash appreciated Neuro: alert, oriented, no focal neurologic deficit appreciated Results & Data Results & Data Vital Signs (Past 12 Hours) Vital Signs Temp Pulse Pulse Resp BP Pulse Ox O2 Del Method 02/07/24 16:10 36.6 C 81 17 149/76 H 94 Room Air 02/07/24 15:57 90 02/07/24 11:15 36.6 C 78 18 134/70 98 Room Air 02/07/24 08:21 36.7 C 76 18 142/65 H 90 Nasal Cannula 02/07/24 07:45 Nasal Cannula 02/07/24 07:32 67 O2 Flow Rate 02/07/24 16:10 02/07/24 15:57 02/07/24 11:15 02/07/24 08:21 1 02/07/24 07:45 2 02/07/24 07:32 Resident Activity Tracking Resident Involvement: Resident Care Provided Care Provided: Adult Hospital Medicine
[2024-02-08 06:35] LABS: Basophils # (auto) 0.06 K/uL (0.00-0.20); Basophils % (auto) 0.6 %; Eosinophils # (auto) 0.29 K/uL (0.00-0.50); Eosinophils % (auto) 2.8 %; Hematocrit (blood only) 30.3 % (37.0-47.0); Hemoglobin 8.8 g/dl (12.0-16.0); Immature Granulocytes # (auto) 0.07 K/uL (0.01-0.20); Immature Granulocytes % (auto) 0.7 %; Lymphocytes # (auto) 1.52 K/uL (1.20-3.40); Lymphocytes % (auto) 14.8 %; Mean Corpuscular Hemoglobin 22.2 pg (25.0-34.0); Mean Corpuscular Volume 76.3 fL (80.0-100.0); Mean Platelet Volume 10.7 fL (9.4-12.4); Monocytes # (auto) 1.12 K/uL (0.11-0.59); Monocytes % (auto) 10.9 %; Neutrophils # (auto) 7.21 K/uL (1.40-6.50); Neutrophils % (auto) 70.2 %; Platelet Count 291 K/uL (130-400); RDW Coefficient of Variation 19.4 % (11.5-14.5); RDW Standard Deviation 49.2 fL (36.4-46.3); Red Blood Count 3.97 M/uL (4.20-5.40); White Blood Count 10.27 K/ul (4.8-10.8)
[2024-02-08 06:47] LABS: Albumin Globulin Ratio 1.8 (0.9-2); Albumin Level 4.2 gm/dl (3.4-5.0); BUN Creatinine Ratio 18.6 (10-20); Bilirubin,Total 0.7 mg/dl (0.2-1.0); Calcium 9.4 mg/dl (8.6-10.3); Creatinine Clr Calc Pharmacy 41.3 ml/min; Est GFR (African American) 44.3 ml/min; Est GFR (Non-African American) 38.2 ml/min; Globulin 2.4 gm/dl (2.5-4.0); Magnesium 1.9 mg/dl (1.7-2.4); Potassium 3.7 mmol/L (3.5-5.1); Total Protein 6.6 gm/dl (6.0-8.3)
[2024-02-08] MEDS: EMPAGLIFLOZIN 10 MG TAB PO SCH (08:38)
[2024-02-08 11:10] LABS: Ferritin 12.5 ng/ml (8-388)
[2024-02-08 12:27] LABS: Basophils # (auto) 0.08 K/uL (0.00-0.20); Basophils % (auto) 0.7 %; Eosinophils # (auto) 0.25 K/uL (0.00-0.50); Eosinophils % (auto) 2.3 %; Hematocrit (blood only) 35.2 % (37.0-47.0); Hemoglobin 10.3 g/dl (12.0-16.0); Immature Granulocytes # (auto) 0.07 K/uL (0.01-0.20); Immature Granulocytes % (auto) 0.7 %; Lymphocytes # (auto) 1.45 K/uL (1.20-3.40); Lymphocytes % (auto) 13.5 %; Mean Corpuscular Hemoglobin 22.2 pg (25.0-34.0); Mean Corpuscular Hgb Conc 29.3 g/dL (32.0-36.0); Mean Corpuscular Volume 75.7 fL (80.0-100.0); Mean Platelet Volume 10.2 fL (9.4-12.4); Monocytes # (auto) 1.23 K/uL (0.11-0.59); Monocytes % (auto) 11.4 %; Neutrophils # (auto) 7.67 K/uL (1.40-6.50); Neutrophils % (auto) 71.4 %; Platelet Count 343 K/uL (130-400); RDW Coefficient of Variation 20.6 % (11.5-14.5); RDW Standard Deviation 49.8 fL (36.4-46.3); Red Blood Count 4.65 M/uL (4.20-5.40); Reticulocyte % 4.08 % (0.50-2.00); White Blood Count 10.75 K/ul (4.8-10.8)
[2024-02-08 13:08] LABS: Anisocytosis Present; Polychromasia 1+
--- NOTE | 2024-02-08 17:05 | Oncology Consultation ---
Date of Consultation February 08, 2024 Assessment & Plan (1) Anemia: the patient's anemia is most likely secondary to iron deficiency related to the blood loss which the patient encounter earlier this year. At this point I would recommend IV iron supplementation as the patient has low ferritin, serum iron and iron saturation. It is clear that the patient has sequelae of iron deficiency from the bleeding which she encountered earlier this year. I reviewed her history, she had a GI workup done within the last 5 years including a colonoscopy and an EGD. Fecal occult blood was negative. At some point the patient may need GI evaluation again however that can be done on an outpatient basis. Starting the patient on IV iron supplementation may be appropriate, if the patient is stable to discharge then we can give iron infusions in the clinic as well. The patient does not need any additional workup from a hematology standpoint such as testing for hemolysis versus bone marrow biopsy. Plan Thank you for this interesting hematological consult. A total of 60 minutes were spent in counseling, coordination of care, review of prior records. Hematology will continue to follow the patient and make appropriate recommendations. We will set up an appointment in the clinic if the patient needs iron on an outpatient basis. History of Present Illness Reason for Consultation: Microcytic hypochromic anemia. Iron deficiency Attending Physician: Do Vang, History of Present Illness the patient is a very pleasant 68-year-old woman who has a history of coronary artery disease, coronary artery bypass graft, diabetes, hypertension, gastroesophageal reflux disease, restless leg syndrome who presented to the emergency department with worsening shortness of breath over the past several days. She was initially diagnosed with anemia in October after she developed epistaxis after an accident in October 2023, had a hemoglobin of 8.1. She did not receive IV iron or follow-up in hematology. She has not noticed any bleeding or bruising since then. She had a GI workup done within the last 10 years including upper GI endoscopy in 2018 and colonoscopy in 2019. She has not had any bleeding since the epistaxis episode In October. iron indicis were performed which revealed a serum iron of 29, transferrin saturation of 8%, ferritin of 12.5. Hematology's been consulted to assist in management of this patient with iron deficiency anemia. On presentation the patient's hemoglobin was 8.4 g/dL. she is microcytic and hypochromic Allergies Allergy/AdvReac Type Severity Reaction Status Date / Time cefazolin [From Ancef] Allergy Verified 02/06/24 10:38 erythromycin base Allergy Verified 02/06/24 10:38 [From Erythrocin] Home Medications Medication Instructions Recorded Confirmed Type Iron with C 1 tab PO DAILY 02/06/24 02/06/24 History Vitamin D3 1 tab PO DAILY 02/06/24 02/06/24 History furosemide 20 mg tablet 20 mg PO DAILY 02/06/24 02/06/24 History magnesium 1 tab PO DAILY 02/06/24 02/06/24 History metformin 1,000 mg tablet 1,000 mg PO BID 02/06/24 02/06/24 History nebivolol 10 mg tablet (Bystolic) 5 mg PO DAILY 02/06/24 02/06/24 History pantoprazole 40 mg tablet,delayed 40 mg PO BID 02/06/24 02/06/24 History release potassium 1 tab PO DAILY 02/06/24 02/06/24 History pramipexole 1.5 mg tablet,extended 1.5 mg PO DAILY 02/06/24 02/06/24 History release 24 hr ranolazine 500 mg tablet,extended 500 mg PO BID 02/06/24 02/06/24 History release,12 hr rosuvastatin 20 mg tablet 20 mg PO DAILY 02/06/24 02/06/24 History triamterene 37.5 1 cap PO DAILY 02/06/24 02/06/24 History mg-hydrochlorothiazide 25 mg capsule venlafaxine 150 mg 150 mg PO BID 02/06/24 02/06/24 History capsule,extended release 24 hr Patient History Social History Smoking Status: Former smoker Second Hand Exposure: No; Do You Dip or Chew Tobacco: No; Hx Alcohol Use: No Hx Substance Use: No Preferred Language: Yi Communication Ability: Effective Counseling Program Leader Required: No Current Living Situation: Alone Feels Safe at Home: Yes Assistive Devices: Walker Review of Systems Review of Systems: fatigue, weakness, tiredness, lack of energy Constitutional: + malaise and + weakness Eyes: as per Subjective / HPI Ear, Nose, Mouth, Throat: as per Subjective / HPI Respiratory: as per Subjective / HPI Cardiovascular: as per Subjective / HPI Gastrointestinal: as per Subjective / HPI Genitourinary: as per Subjective / HPI Musculoskeletal: as per Subjective / HPI Integumentary: as per Subjective / HPI Neurologic: as per Subjective / HPI Psychiatric: as per Subjective / HPI Endocrine: as per Subjective / HPI Hematologic / Lymphatic: as per Subjective / HPI Physical Exam Constitutional: WD/WN, vitals as above Eyes: PERRL, conjunctivae normal, anicteric sclerae ENMT: external ear and nose normal, oropharynx normal Neck: trachea midline, no thyromegaly Respiratory: normal respiratory effort, lungs clear to auscultation Cardiovascular: RRR, no murmur, no edema Gastrointestinal (Abdomen): normal bowel sounds, soft, nontender, no hepatosplenomegaly Musculoskeletal: no cyanosis or clubbing, extremities motor strength 5/5 Skin: no rashes, warm and dry Neurologic: patellar DTR's 2+ bilat, sensation intact Results & Data Vital Signs (Past 12 Hours) Vital Signs Temp Pulse Pulse Resp BP Pulse Ox O2 Del Method 02/08/24 14:40 93 H 02/08/24 14:39 36.7 C 92 H 16 147/74 H 92 Room Air 02/08/24 11:12 36.6 C 90 19 147/80 H 95 Room Air 02/08/24 07:50 77 02/08/24 07:50 Room Air 02/08/24 07:10 36.5 C 77 17 149/71 H 96 Nasal Cannula O2 Flow Rate 02/08/24 14:40 02/08/24 14:39 02/08/24 11:12 02/08/24 07:50 02/08/24 07:50 02/08/24 07:10 1
--- NOTE | 2024-02-08 17:18 | Hospitalist Progress Note ---
Date of Service February 08, 2024 Assessment & Plan (1) CHF exacerbation: (2) S/P CABG x 2: (3) Hypertension: (4) Hyperlipidemia: (5) Diabetes mellitus: (6) Restless leg syndrome: (7) Anemia: (8) GERD (gastroesophageal reflux disease): (9) Anxiety and depression: (10) CAD (coronary artery disease): Plan #CHF exacerbation/CAD/hypertension/status post CABG x 2- Trops peaked Echo with preserved ejection fraction Continue IV diuresis Chest x-ray with significant CHF initial troponin 7.2, BNP 493 Continue Lasix 40mg IV daily Continue ranolazine and nebivolol Hold triamterene/HCTZ and lisinopril Consult cardiology - recommend SGLT2 Jardiance restarted, change diuretics to 40mg Lasix daily at discharged Try to obtain all records from [facility] and hospital that she was at in [place] #Anemia- Unclear etiology at this time due to patient concern will place consult for heme/onc though this likely could have been worked up in the outpatient setting Per history, began after a nasal fracture in October while in [place], will a ttempt to get those records Hemoglobin 8.5 on admission Hemoccult stool negative in the ED, continue to check #Diabetes mellitus- Hold metformin Placed on Accu-Cheks with NovoLog SSI A1c 7.6; will need to determine appropriate outpatient regimen and close pcp follow up #GERD- Continue pantoprazole 40 mg p.o. twice daily #Hyperlipidemia- Continue rosuvastatin Check a fasting lipid pane Admission and Anticipated Discharge Date Admission Date: February 06, 2024 Supervising Physician Co-Signing Physician Notes I personally examined the patient and verified ren points of history and exam, discussed case, and agree with decision making and plan documented by Dr. Chavez. Subjective Patient seen and evaluated at bedside this morning. No acute events overnight. Reports feeling improved today. States she remains concerned over her anemia diagnosis. Review of Systems Review of Systems: reviewed, per HPI Physical Exam Physical Exam: Constitutional: NAD HEENT: NCAT, no conjunctival injection CV: regular rhythm, extremities well-perfused, no LE edema Resp: CTABL, no wheezes/rales/rhonchi appreciated, no increased work of b reathing GI: nondistended MSK: no gross deformities appreciated Skin: warm, dry, no rash appreciated Neuro: alert, oriented, no focal neurologic deficit appreciated Results & Data Results & Data Vital Signs (Past 12 Hours) Vital Signs Temp Pulse Pulse Resp BP Pulse Ox O2 Del Method 02/08/24 14:40 93 H 02/08/24 14:39 36.7 C 92 H 16 147/74 H 92 Room Air 02/08/24 11:12 36.6 C 90 19 147/80 H 95 Room Air 02/08/24 07:50 77 02/08/24 07:50 Room Air 02/08/24 07:10 36.5 C 77 17 149/71 H 96 Nasal Cannula O2 Flow Rate 02/08/24 14:40 02/08/24 14:39 02/08/24 11:12 02/08/24 07:50 02/08/24 07:50 02/08/24 07:10 1
--- NOTE | 2024-02-08 17:20 | Electrocardiogram Report ---
Test Reason : Blood Pressure : */* mmHG Vent. Rate : 69 BPM Atrial Rate : 69 BPM P-R Int : 146 ms QRS Dur : 80 ms QT Int : 424 ms P-R-T Axes : 61 46 74 degrees QTcB Int : 454 ms Normal sinus rhythm Possible Left atrial enlargement Nonspecific ST and T wave abnormality Abnormal ECG When compared with ECG of 06-FEB-2024 10:11, Borderline criteria for Anterior infarct are no longer Present Nonspecific T wave abnormality no longer evident in Anterior leads Confirmed by Ankit Daniel ([id number]) on 02/08/2024 5:19:48 PM Referred By: REFERRED SELF Confirmed By: Ankit Daniel
--- NOTE | 2024-02-08 17:26 | Electrocardiogram Report ---
Test Reason : Blood Pressure : */* mmHG Vent. Rate : 77 BPM Atrial Rate : 77 BPM P-R Int : 148 ms QRS Dur : 78 ms QT Int : 410 ms P-R-T Axes : 50 25 54 degrees QTcB Int : 463 ms Normal sinus rhythm Possible Left atrial enlargement Nonspecific ST and T wave abnormality Abnormal ECG When compared with ECG of 07-Feb-2024 06:34, (unconfirmed) Nonspecific T wave abnormality now evident in Anterior leads Confirmed by Ankit Daniel ([id number] on 02/08/2024 5:26:29 PM Referred By: REFERRED SELF Confirmed By: Ankit Daniel
[2024-02-09 03:12] VITALS: TEMP 97.9
[2024-02-09 06:36] LABS: Basophils # (auto) 0.07 K/uL (0.00-0.20); Basophils % (auto) 0.8 %; Eosinophils # (auto) 0.28 K/uL (0.00-0.50); Eosinophils % (auto) 3.1 %; Hematocrit (blood only) 31.7 % (37.0-47.0); Hemoglobin 9.4 g/dl (12.0-16.0); Immature Granulocytes # (auto) 0.07 K/uL (0.01-0.20); Immature Granulocytes % (auto) 0.8 %; Lymphocytes # (auto) 1.76 K/uL (1.20-3.40); Lymphocytes % (auto) 19.3 %; Mean Corpuscular Hemoglobin 22.5 pg (25.0-34.0); Mean Corpuscular Hgb Conc 29.7 g/dL (32.0-36.0); Mean Corpuscular Volume 75.8 fL (80.0-100.0); Monocytes # (auto) 1.13 K/uL (0.11-0.59); Monocytes % (auto) 12.4 %; Neutrophils # (auto) 5.81 K/uL (1.40-6.50); Neutrophils % (auto) 63.6 %; Platelet Count 308 K/uL (130-400); RDW Coefficient of Variation 20.2 % (11.5-14.5); RDW Standard Deviation 50.7 fL (36.4-46.3); Red Blood Count 4.18 M/uL (4.20-5.40); White Blood Count 9.12 K/ul (4.8-10.8)
[2024-02-09 06:54] LABS: Albumin Globulin Ratio 1.6 (0.9-2); Albumin Level 4.2 gm/dl (3.4-5.0); BUN Creatinine Ratio 19.7 (10-20); Bilirubin,Total 0.6 mg/dl (0.2-1.0); Calcium 9.6 mg/dl (8.6-10.3); Creatinine Clr Calc Pharmacy 39.2 ml/min; Est GFR (African American) 41.8 ml/min; Globulin 2.6 gm/dl (2.5-4.0); Potassium 3.8 mmol/L (3.5-5.1); Total Protein 6.8 gm/dl (6.0-8.3)
[2024-02-09 07:08] LABS: Anisocytosis Present; Polychromasia 1+
[2024-02-09 07:13] VITALS: RESP 16
[2024-02-09 10:48] VITALS: BP 134/78; O2SAT 94
[2024-02-09] MEDS: IRON SUCROSE 300 MG in SODIUM CHLORIDE 0.9% 250 ML IV ONE (10:56)
[2024-02-09 14:56] VITALS: PULSE 91
--- NOTE | 2024-02-09 16:19 | Discharge Summary ---
Date of Service February 09, 2024 Admission HPI Per Admitting Provider The patient is a 68-year-old female with a past medical history including CAD, CABG x 2 in 2018, hypertension, diabetes mellitus, GERD, restless leg syndrome, hyperlipidemia and anxiety with depression. She presents to the emergency department with worsening shortness of breath over the past several days. She usually gets her care at [facility], however, patient has presented with her family to [facility] for additional assessment. Patient has known history of anemia, which initially occurred 11/01/2023, while she was in [place], when she accidentally stepped into a hole, fell forward and fractured her nasal bones, required packing for a week, and was found to have a hemoglobin of 8.1 at that time. She denies any obvious issues with blood loss in stool or urine. She reports that she was on Maxide in the outpatient setting, which had been changed to furosemide last week, but she felt that she was retaining more fluid in her legs, and she went back to her Maxide dosing 3 days ago. Her family reports that she has been sleeping up to 18 hours a day over the past 2 weeks, due to severe fatigue she denies any blood in urine or stool.She reports that her Plavix was stopped last week when her hemoglobin was found to be low at her most recent labs Admission Exam Per Admitting Provider The patient is awake, alert and oriented 3, well developed and well nourished, normocephalic and atraumatic, lying in bed and in no acute distress. HEENT--PERRL, EOMI, mucous membranes and oropharynx normal Neck--supple. No JVD. No bruits. Thyroid normal, trachea midline, no adenopathy. Heart--normal S1 and S2. No murmurs, rubs or gallops. Lungs--crackles throughout. No respiratory distress, no accessory muscle use. Abdomen--normal bowel sounds and soft. Nontender. Nondistended, no hernias or masses, no organomegaly. Extremities--1+ bilateral pretibial pitting edema Dermatologic--normal skin turgor, normal color, no abnormal lymph nodes, no rash. Neurologic--cranial nerves II through XII grossly intact. Rheumatologic--normal range of motion. Psychiatric--normal affect. Principal Diagnosis CHF exacerbation, Iron Deficiency Anemia Discharge Exam Constitutional: NAD HEENT: NCAT, no conjunctival injection CV: regular rhythm, extremities well-perfused, no LE edema Resp: CTABL, no wheezes/rales/rhonchi appreciated, no increased work of breathing GI: nondistended MSK: no gross deformities appreciated Skin: warm, dry, no rash appreciated Neuro: alert, oriented, no focal neurologic deficit appreciated Discharge Data Allergies Allergy/AdvReac Type Severity Reaction Status Date / Time cefazolin [From Ancef] Allergy Verified 02/06/24 10:38 erythromycin base Allergy Verified 02/06/24 10:38 [From Erythrocin] Consultations 02/06/24 11:53 ED Decision to Admit Stat 02/06/24 16:30 Consult Cardiology Routine 02/08/24 11:21 Consult Hematology Routine Hospital Course (1) CHF exacerbation: (2) S/P CABG x 2: (3) Hypertension: (4) Hyperlipidemia: (5) Diabetes mellitus: (6) Restless leg syndrome: (7) Anemia: (8) GERD (gastroesophageal reflux disease): (9) Anxiety and depression: (10) CAD (coronary artery disease): Plan #CHF exacerbation/CAD/hypertension/status post CABG x 2- Trops peaked Echo with preserved ejection fraction Continue IV diuresis Chest x-ray with significant CHF initial troponin 7.2, BNP 493 Continue Lasix 40mg IV daily Continue ranolazine and nebivolol Hold triamterene/HCTZ and lisinopril - restart on dc Consult cardiology - recommend SGLT2 Jardiance restarted, change diuretics to 40mg Lasix daily at discharge #Anemia- Per history, began after a nasal fracture in October while in [place] Hemoglobin 8.5 on admission Iron studies performed, demonstrates iron deficiency anemia Hematology consulted, agree with iron deficiency anemia Received one dose of Venofer prior to discharge Would likely benefit from additional two doses of Venofer and iron supplementation Hemoccult stool negative in the ED, continue to check #Diabetes mellitus- A1c 7.6 Hold metformin, restart on dc Jardiance restarted inpatient, continue at dc #GERD- Continue pantoprazole 40 mg p.o. twice daily #Hyperlipidemia- Continue rosuvastatin Check a fasting lipid pane Total Time Total Time Spent Total Time Spent (In Minutes): 42 min Total Time Includes: Examination of the Patient, Discharge Planning, Medication Reconciliation, Communication With Other Providers and Other Discharge Plan Discharge Items Patient Disposition: Home - Self-Care Reason For Visit: CHF, SYMPTOMATIC ANEMIA Discharge Diagnosis: Iron Deficiency Anemia Condition on Discharge: Good Activity: Per Instructions section Non-emergency contact: Primary Care Provider Call non-emergency contact if: you have any medication questions and your symptoms worsen Follow-up/Referrals: Carlito Boyer DO [Primary Care Provider] - (patient will make PCP follow up appointment in 5-7 days. ) Selena Carlisle MD [Physician] - (F/u iron def anemia-> venofer Dr. Gallardo's office will call with follow up appointment.) Diet: Regular Addtl Attending Provider Instructions: You were admitted with shortness of breath which we believe is likely secondary to iron deficiency anemia and heart failure exacerbation. We gave you IV iron, you should continue to take oral iron at home. Will get you set up a follow up with hematology for further iron transfusions as needed. We increased your Lasix from 20mg to 40mg, a script was sent to the pharmacy for the new dose. We started you on Jardiance, a mediation for both heart failure and diabetes, this was sent to the pharmacy for you. Please make a follow up with your primary care provider for next week. Pending Studies at Discharge: No Stand-Alone Forms: [facility] [employer], Smoking Cessation Medications and DC Order Prescriptions: New Jardiance 10 mg Tablet 10 mg PO DAILY 30 Days Qty: 30 1RF furosemide [Lasix] 40 mg tablet 40 mg PO DAILY Qty: 30 1RF Continued venlafaxine 150 mg capsule,extended release 24hr 150 mg PO BID triamterene-hydrochlorothiazid 37.5-25 mg capsule 1 cap PO DAILY pantoprazole 40 mg tablet,delayed release (DR/EC) 40 mg PO BID metformin 1,000 mg tablet 1,000 mg PO BID rosuvastatin 20 mg tablet 20 mg PO DAILY ranolazine 500 mg tablet extended release 12 hr 500 mg PO BID pramipexole 1.5 mg tablet extended release 24 hr 1.5 mg PO DAILY nebivolol [Bystolic] 10 mg tablet 5 mg PO DAILY Iron with C 1 tab PO DAILY Rx Instructions: otc, as directed. unknown dose Vitamin D3 1 tab PO DAILY Rx Instructions: otc, as directed. unknown dose magnesium 1 tab PO DAILY Rx Instructions: otc, as directed. unknown dose potassium 1 tab PO DAILY Rx Instructions: otc, as directed. unknown dose Discontinued furosemide 20 mg tablet 20 mg PO DAILY Discharge Orders: Discharge Order (Routine); Ordered 02/09/24 Ordered By: Silvia Fox Admission Data Admit Date/Time: 02/06/24 13:57 Attending Provider: Do Vang Admit Provider: Alex Snow Primary Care Provider: Carlito Boyer Other Providers: Alex Snow; Ankit Daniel; Selena Carlisle Other Interventions: Discharge Summary Assessment (RN) Last Done: 02/09/24 14:55 Supervising Physician Co-Signing Physician Notes I personally examined the patient and verified ren points of history and exam, discussed case, and agree with decision making and plan documented by Dr. Chavez. Patient treated with IV iron infusion today in hospital, will complete additional transfusions outpatient for her iron deficiency anemia. Encouraged continued efforts to increase iron in diet. Euvolemic on exam. PO furosemide increased on discharge to 40 mg daily. Creatinine level increased slightly during hospitalization (1.47), recommend this is rechecked in 1 week postdischarge along with blood count. Empagliflozin was also restarted on discharge, A1c 7.4% 02/07/2024. Patient will follow-up with her PCP. Resident Activity Tracking Resident Involvement: Resident Care Provided Care Provided: Adult Hospital Medicine
== END 2024-02-09 16:42 | disposition home or self-care (01) | DRG 291 ==
LOC: ED 09:54 → SUATTDRO 13:57 → 4W 13:57
DX: E78.5 Hyperlipidemia, unspecified; I50.31 Acute diastolic (congestive) heart failure; Z79.899 Other long term (current) drug therapy; I11.0 Hypertensive heart disease with heart failure; Z79.82 Long term (current) use of aspirin; F41.9 Anxiety disorder, unspecified; K21.9 Gastro-esophageal reflux disease without esophagitis; F32.A Depression, unspecified; Z88.1 Allergy status to other antibiotic agents; E11.9 Type 2 diabetes mellitus without complications; I25.10 Atherosclerotic heart disease of native coronary artery without angina pectoris; Z87.891 Personal history of nicotine dependence; G25.81 Restless legs syndrome; D50.9 Iron deficiency anemia, unspecified; Z79.84 Long term (current) use of oral hypoglycemic drugs; I34.0 Nonrheumatic mitral (valve) insufficiency; Z95.1 Presence of aortocoronary bypass graft